=== PATIENT | male | born 1960 | race Caucasian/White ===

== ENCOUNTER 2016-05-24 13:41 | Emergency (ER) | payer OTHER ==
[~2016-05-24] VITALS: Ht 188 cm; Wt 138.6 kg
[2016-05-24 13:46] VITALS: BP 132/86; PULSE 82; RESP 20; O2SAT 96
[2016-05-24 14:16] LABS: BASOPHILS % (AUTO) 0.4 % (0-3); MONOCYTES % (AUTO) 6.7 % (4-12); Mean Corpuscular Hemoglobin 29.4 pg (27.0-35.0); Mean Corpuscular Volume 86.3 fL (81-100); NEUTROPHILS % (AUTO) 77.1 % (40-74); Platelet Count 243 bil/L (150-400)
--- NOTE | 2016-05-24 15:28 | ED.REPORT ---
HPI-Abd Pain M 40 and Over Date of Service May 24, 2016 ED Provider: Valentino Aguilera MD A healthy 55 year old male presents to the ED with worsening LLQ abdominal pain onset 0100 this morning. The pain does not radiate and is described as "cramping ," exacerbated with movement. The patient also reports nausea, loss of appetite , recent cough, and dizziness. He denies fever, vomiting, diarrhea, or other symptoms. The patient has not been on recent antibiotics. He has not had similar symptoms in the past. Nursing Notes Stated Complaint: STOMACH PAIN Chief Complaint: Male Abdominal Pain Nursing Notes Reviewed: Yes (JLGOV not reconciled) Allergies: Coded Allergies: codeine (Verified Allergy, Mild, 05/24/16) Scheduled Amoxicillin/Clav K 875-125 mg (Augmentin 875-125 mg) 1 Each Tablet 1 TABLET PO BID Lactobacillus Acidophilus (Probiotic) 1 Each Capsule 1 EACH PO DAILY Scheduled PRN Hydrocodone-Acetaminophen 5-325 mg (Hydrocodone-Acetaminophen 5-325 mg) 1 Each Tablet 1-2 TABLET PO Q4H PRN PRN For Pain Ondansetron ODT (Ondansetron ODT) 8 Mg Tab.rapdis 8 MG PO Q4H PRN PRN For Nausea General Time Seen by MD: 14:57 Chief Complaint Abdominal pain Hx Obtained From: Patient Arrived By: Walk-in Sudden in Onset?: No Onset Occurred: 13 - 16 hours ago Symptom Duration: Since onset Progression since Onset: Gradually worsening Location: : LLQ Quality: Painful Radiation: : Does not radiate Severity: Current: Moderate Severity: Maximum: Moderate Associated with: Reports: Nausea, Denies: Diarrhea, Fever, Vomiting Exacerbated by: Movement Pertinent Negative: Relieved by nothing Context Related History: Reports: Abdominal surgery Recent Healthcare: No recent doctor visit Similar Sx Previous: No Past Medical History Past Medical History None reported Past Surgical History Cholecystectomy Appendectomy Smoking History Unknown if Ever Smoker Social History Other Social History: Good social support Ambulatory Status Independent Review of Systems Review of Systems Note: + Loss of appetite Constitutional: Denies: Fever Respiratory: Reports: Non-productive cough, Denies: Shortness of breath GI: Reports: Abdominal pain (LLQ), Nausea, Denies: Diarrhea, Vomiting Complete sys rev & neg: except as marked. Neurologic: Reports: Dizziness Physical Exam Initial Vital Signs Vital Signs (First) Date Time Temp Pulse Resp B/P Pulse Ox O2 Delivery O2 Flow Rate FiO2 05/24/16 13:46 36.2 82 20 132/86 96 Room Air Initial VS: Reviewed, Vital signs normal Head / Eyes: Atraumatic, Normocephalic ENT: Conjunctiva normal, No scleral icterus Neck: Supple, Full range of motion Skin: Warm, Dry, No cyanosis Neurologic: Alert, Oriented, Nonfocal Psychiatric: Mood/affect normal, Behavior normal, Normal thought content General/Constitutional: Awake, Alert, No acute distress Respiratory / Chest: Breath sounds NL, Breath sounds = bilat, No respiratory distress Cardiovascular: Heart rate NL, Regular rhythm, Heart sounds NL Abdomen: Soft, No guarding, No rebound Tenderness/Guarding/Rebound: Positive: Tender LLQ... (Trace) Interpretation & Diagnostics Lab Results Interpretation Result Diagram: 05/24/16 1305 05/24/16 1305 Test 05/24/16 13:05 05/24/16 13:30 White Blood Count 15.3th/mm3 (3.8-10.1) Red Blood Count 5.27mil/mm3 (4.40-5.80) Hemoglobin 15.5g/dL (13.8-17.2) Hematocrit 45.5% (41.0-50.0) Mean Corpuscular Volume 86.3fL (81-100) Mean Corpuscular Hemoglobin 29.4pg (27.0-35.0) Mean Corpuscular Hemoglobin Concent 34.1% (32.0-37.0) Red Cell Distribution Width 13.5% (12.3-15.4) Platelet Count 243bil/L (150-400) Neutrophils (%) (Auto) 77.1% (40-74) Lymphocytes (%) (Auto) 13.4% (14-46) Monocytes (%) (Auto) 6.7% (4-12) Eosinophils (%) (Auto) 2.0% (0-5) Basophils (%) (Auto) 0.4% (0-3) Sodium Level 137mEq/L (134-144) Potassium Level 4.0mEq/L (3.5-5.2) Chloride Level 99mEq/L (97-108) Carbon Dioxide Level 26mmol/L (18-29) Blood Urea Nitrogen 18mg/dL (6-24) Creatinine 0.89mg/dL (0.76-1.27) Estimat Glomerular Filtration Rate 94mL/min (>59) Glucose Level 137mg/dL (60-99) Calcium Level 9.0mg/dL (8.5-10.1) Magnesium Level 2.0mg/dL (1.6-2.6) Total Bilirubin 0.7mg/dL (0.0-1.2) Aspartate Amino Transf (AST/SGOT) 21U/L (0-50) Alanine Aminotransferase (ALT/SGPT) 33U/L (0-44) Alkaline Phosphatase 81U/L (25-150) Total Protein 7.1g/dL (6.4-8.4) Albumin 4.2g/dL (3.4-5.0) Lipase 17U/L (13-60) Hold Dutton Top Tube Received (Received) Lab Results Interpretation: CBC positive leukocytosis CMP normal CT Abd / Pelvis Interpretation IMPRESSION: 1. Diverticulitis of the distal descending and proximal sigmoid colon. 2. Small hiatal hernia. 3. Hepatic steatosis. 4. There are surgical clips within the gallbladder fossa, but there appears to be a smaller than usual sized gallbladder remnant, which demonstrates otherwise expected configuration, with connection via a cystic duct to the biliary tree. Findings are suggestive of partial prior cholecystectomy. Recommend correlation with operative report for further assessment. Dictated by: Sophia Vieyra M.D. on 05/24/2016 at 15:33 Study type: Abdominal CT IV contrast Interpretation / Wet Read by: Interpret - Radiologist Re-Eval/Medical Decision Med Decision/Clinical Course This is a pleasant 55-year-old male works at [employer] and developed left lower quadrant pain last night and steady and worsening today. He was initially seen and orders initiated by Dr. Pardo, but I assumed care the and interviewed and examined the patient He is a classic history for first episode of diverticulitis, and has trace tenderness only on clinical exam that improved with medication. His labs do reveal moderate leukocytosis, CT scan reveals mild diverticulitis without abscess or perforation. With the doing well enough that I do not think that hospitalization is necessary in that the patient's a reasonable candidate for outpatient management. The patient's being started on Augmentin orally, this received initial dose of Unasyn IV-in the attempt to continue to avoid fluoroquinolones except as last resort. The patient's being discharge and attend a course of Augmentin, some when necessary ondansetron, and when necessary hydrocodone. I have also written for and recommended daily probiotics to continue additional 10 days after the Avelox are complete. Careful precautions and discharge instructions are reviewed. Patient's advised return not clearly improved. A work note was also provided. he is discharged in much improved condition Source of Hx: Old records Time of Eval: 15:54 Patient Status: Condition improved Re-Evaluation/Progress Note: Discussed with patient CT and lab results, diagnosis, and plan for discharge. Follow-up and return to the ER instructions given. Patient agrees with plan for care and all questions were addressed. Differential Diagnosis: Positive: Diverticular disease, Negative: Abscess, Appendicitis, Dyspepsia, Myocardial infarction, Pancreatitis, Peptic ulcer disease, Peritonitis, Pyelonephritis, Volvulus Counseled Regarding: Diagnosis, Lab results, Need for follow-up, When/why to return to ED Discharge & Departure Primary Impression: Diverticulitis Diverticulitis site: large intestine Diverticulitis bleeding: without bleeding Diverticulitis complication: without perforation or abscess Qualified Code: K57.32 - Diverticulitis of large intestine without perforation or abscess without bleeding Disposition: Home Vital Signs - All Vital Signs Date Time Temp Pulse Resp B/P Pulse Ox O2 Delivery O2 Flow Rate FiO2 05/24/16 17:28 76 16 114/69 96 Room Air 05/24/16 13:46 36.2 82 20 132/86 96 Room Air )( All Prior VS Reviewed: Yes Condition: Improved Additional Instructions: 1. Take the antibiotic oxacillin/clavulanate 875 mg twice a day for 10 days ( 20 doses) with the first dose being at bedtime tonight as he received a dose of IV antibiotics in the emergency department. 2. Take hydrocodone/APAP 5/325 one to 2 tabs up to every 4-6 hours if needed for more severe pain. Note: This medication does continue narcotic and causes drowsiness. No driving for at least 4-6 hours after taking. 3. Take the medication ondansetron 8 mg-lead dissolve underneath tongue-up to every 4 hours if needed for nausea. 4. Drink frequent sips of fluids, and is okay to eat-start with small amounts and advance diet as tolerated. 5. Symptoms are expected to be improving rapidly over the next few days. If they are not improving, if he developed worsening pain, or free develop fever- return to the emergency department. 6. As discussed, this is a condition that can recur intermittently over time. In the future if symptoms start that are similar to this, you do want to be seen -and can often be started on antibiotics without extensive testing or imaging. ( And if for some reason if you do have recurrent or frequent bouts, changes in diet can be considered, although as discussed or some debate over the past diet options.) 7. Return if worsening symptoms 8. If you need a primary care provider, follow up with the [facility] 9. I also recommend taking a probiotic daily, and continuing for another 10-14 days after finishing the antibiotics. Referrals: [facility] (PCP) [facility] Scribe Attestation Portions of this note were transcribed by Nevaeh Dennis. I, Dr. Aguilera, personally performed the history, physical exam, and medical decision-making; I reviewed and confirmed the accuracy of the information in the transcribed note. Signed by: Hank Maguire, 05/24/2016, 17:45 copies to: [facility] Valentino Aguilera MD May 24, 2016 15:28 NEVAEH DENNIS May 24, 2016 15:57
--- NOTE | 2016-05-24 15:42 | DRSVH ---
PROCEDURE: CT ABDOMEN AND PELVIS WITH CONTRAST ([id number]) INDICATIONS: LLQ abdominal pain TECHNIQUE: After the administration of intravenous contrast, 5 mm thick sections acquired from the diaphragm to the symphysis. 5 mm coronal and sagittal reformats were acquired. For radiation dose reduction, the following was used: automated exposure control, adjustment of mA and/or kV according to patient siz e. COMPARISON: None. FINDINGS: Image quality: Excellent. ABDOMEN: Lung bases: Lung bases are clear. Heart size is normal. Solid organs: Liver is enlarged, measuring 20 cm cranial caudal, and demonstrates diffusely decrease d density, indicating fatty infiltration. There are surgical clips within the gallbladder fossa, but there is remaining 40 mm diameter fluid density focus within the gallbladder fossa, with apparent com munication via a cystic duct to the biliary tree in expected configuration. Biliary system is non dil ated. Pancreas enhances normally. No adrenal nodules. Kidneys demonstrate normal size and enhancem ent, without hydronephrosis. Peritoneum and bowel: A 30 mm diverticulum of the 2nd portion of the duodenum is present. A small hi atal hernia is present. The stomach is decompressed. Small bowel is nondistended. Appendectomy clips are present. Colon is nondistended. There is diverticulosis of the descending and sigmoid colon. Ther e is moderate thickening of the distal descending and proximal sigmoid colon. Moderate to fat strandi ng surrounds the thickened colon. No pericolonic abscess. No free fluid or air. Nodes and vessels: No retroperitoneal or mesenteric adenopathy by size criteria. Aorta and inferior vena cava are normal in size. Miscellaneous: No ventral hernias. PELVIS: Genitourinary: Bladder wall thickness is normal. Miscellaneous: No inguinal hernias or adenopathy. Bones: No suspicious bony lesions. No vertebral body compression fractures. IMPRESSION: 1. Diverticulitis of the distal descending and proximal sigmoid colon. 2. Small hiatal hernia. 3. Hepatic steatosis. 4. There are surgical clips within the gallbladder fossa, but there appears to be a smaller than usua l sized gallbladder remnant, which demonstrates otherwise expected configuration, with connection via a cystic duct to the biliary tree. Findings are suggestive of partial prior cholecystectomy. Recommend correlation with operative report for further assessment. Dictated by: Sophia Vieyra M.D. on 05/24/2016 at 15:33 Approved by: Sophia Vieyra M.D. on 05/24/2016 at 15:38
[2016-05-24] MEDS ORDERED: Ondansetron 2 mg/mL 2 mL Inj IVPUSH ONE (16:00)
[2016-05-24] MEDS ORDERED: 0.9% Sodium Chloride 1,000 ML IV ONE (16:00)
[2016-05-24] MEDS ORDERED: Ampicillin-Sulbactam Inj 3,000 MG in 0.9% Sodium Chloride 100 ML IV ONE (16:00)
[2016-05-24] MEDS ORDERED: AMOX-366 PO (16:04)
[2016-05-24] MEDS ORDERED: HYDR-4003 PO (16:04)
[2016-05-24] MEDS ORDERED: LACT1CAP65 PO (16:04)
[2016-05-24] MEDS ORDERED: ONDA8TAB10 PO (16:04)
[2016-05-24 17:28] VITALS: BP 114/69; PULSE 76; RESP 16; O2SAT 96
== END 2016-05-24 17:29 | disposition home or self-care (01) ==
LOC: SED 13:41
DX: K57.32 Diverticulitis of large intestine without perforation or abscess without bleeding (principal); R05 Cough; R42 Dizziness and giddiness; Z90.49 Acquired absence of other specified parts of digestive tract; Z98.890 Other specified postprocedural states; Z88.5 Allergy status to narcotic agent
CPT/HCPCS: 36415; 74177; 80053; 83690; 83735; 85025; 96365; 96375; 99285; J0295; J2405; J7030; Q9967